=== PATIENT | male | born 1990 | race Caucasian/White ===

== ENCOUNTER 2016-11-26 19:17 | Inpatient (IN) | payer MEDICAID, OTHER ==
--- NOTE | 2016-11-26 19:35 | C.PDOC ---
History Of Present Illness Patient presents to the ER requesting detox from heroin, last use was a few hours ago. Denies physical complaints at this time. Time Seen by Provider: 11/26/16 19:35 Chief Complaint (Nursing): Substance Abuse History Per: Patient History/Exam Limitations: no limitations Onset/Duration Of Symptoms: Hrs Current Symptoms Are (Timing): Still Present Suicide/Self Injury Attempted (Context): None Modifying Factor(s): Narcotics Severity: None Pain Scale Rating Of: 0 Associated Symptoms: denies: Depression, Suicidal Thoughts, Suicidal Plan Involuntary Hold By: None Recent travel outside of the [place]: No Past Medical History Reviewed: Historical Data, Nursing Documentation, Vital Signs Vital Signs: Last Vital Signs Temp 98 F 11/26/16 19:24 Pulse 100 H 11/26/16 19:24 Resp 18 11/26/16 19:24 BP 149/89 11/26/16 19:24 Pulse Ox 96 11/26/16 19:52 - Medical History PMH: Anxiety, HIV - [facility] Procedures ABDOMINAL WALL INCISION (08/31/14) DETOXIFICATION SERVICES FOR SUBSTANCE ABUSE TREATMENT (06/08/15) DRAINAGE OF SPINAL CANAL, PERCUTANEOUS APPROACH, DIAGNOSTIC (05/17/15) EXCIS DEBRIDE OF WOUND, INFECT, OR BURN (08/24/14) INJECT/INFUSE NEC (04/01/13) Family History: States: Unknown Family Hx - Social History Hx Tobacco Use: Yes Hx Alcohol Use: No Hx Substance Use: Yes (Heroin, CRACK) - Immunization History Hx Tetanus Toxoid Vaccination: No Hx Influenza Vaccination: No Hx Pneumococcal Vaccination: No Review Of Systems Constitutional: Negative for: Fever, Chills Gastrointestinal: Negative for: Nausea, Vomiting, Diarrhea Physical Exam - Physical Exam Appears: Non-toxic, No Acute Distress Skin: Warm, Dry Head: Normacephalic Oral Mucosa: Moist Chest: Symmetrical, No Tenderness Cardiovascular: Rhythm Regular Respiratory: No Rales, No Rhonchi, No Wheezing Gastrointestinal/Abdominal: Soft, No Tenderness Neurological/Psych: Oriented x3 ED Course And Treatment - Laboratory Results Result Diagrams: 11/26/16 20:06 11/26/16 20:06 O2 Sat by Pulse Oximetry: 96 (room air) Pulse Ox Interpretation: Normal Progress Note: Blood work and urinalysis ordered. Disposition Discussed With : Ana Garza Comment: accepted the pt on his service and took over the care at 9:42 PM Doctor Will See Patient In The: Hospital Counseled Patient/Family Regarding: Studies Performed, Diagnosis - Disposition Disposition: HOSPITALIZED Disposition Time: 19:35 Condition: FAIR Forms: [facility] (Swedish) - Clinical Impression Clinical Impression: Opioid use disorder, severe, dependence - Scribe Statement The provider has reviewed the documentation as recorded by the Scribchaim Mitchell All medical record entries made by the Scribe were at my direction and personally dictated by me. I have reviewed the chart and agree that the record accurately reflects my personal performance of the history, physical exam, medical decision making, and the department course for this patient. I have also personally directed, reviewed, and agree with the discharge instructions and disposition. Decision To Admit - Pt Status Changed To: Hospital Disposition Of: Inpatient - Admit Certification Admit to Inpatient:: After my assessment, the patient will require hospitalization for at least two midnights. This is because of the severity of symptoms shown, intensity of services needed, and/or the medical risk in this patient being treated as an outpatient. - InPatient: Physician Admission Certification: I certify that this patient requires 2 or more midnights of care for the following reason:: After my assessment, the patient will require hospitalization for at least two midnights. This is because of the severity of symptoms shown, intensity of services needed, and/or the medical risk in this patient being treated as an outpatient. - . Bed Request Type: Detox Admitting Physician: Ana Garza Patient Diagnosis: Opioid use disorder, severe, dependence
[2016-11-26 20:09] LABS: BASO % 0.6 % (0.0-2.0); EOS % 0.5 % (0.0-4.0); HEMATOCRIT 35.5 % (35.0-51.0); LYMPH # 1.3 K/uL (1.0-4.3); MEAN CELL VOLUME 78.8 fL (80.0-94.0); MEAN CORPUSCULAR HEMOGLOBIN 27.1 pg (27.0-31.0); MEAN CORPUSCULAR HGB CONC 34.4 g/dL (33.0-37.0); MEAN PLATELET VOLUME 8.6 fL (7.2-11.7); MONO # 0.3 K/uL (0.0-0.8); MONO % 6.5 % (0.0-10.0); NRBC % 0.1 % (0.0-2.0); RED CELL DISTRIBUTION WIDTH 16.8 % (11.5-14.5); WHITE BLOOD COUNT 4.1 K/uL (4.8-10.8)
[2016-11-26 20:17] LABS: RBC URINE 2 /hpf (0-3); URINE BILIRUBIN NEGATIVE (NEGATIVE); URINE BLOOD NEGATIVE (NEGATIVE); URINE COLOR Yellow (YELLOW); URINE GLUCOSE (UA) NORMAL (Normal); URINE KETONE NEGATIVE (NEGATIVE); URINE LEUKOCYTE ESTERASE NEG Leu/uL (Negative); URINE PROTEIN 1+ mg/dL (NEGATIVE)
[2016-11-26 20:31] LABS: CHLORIDE 103 mmol/L (98-107)
[2016-11-26 20:32] LABS: POTASSIUM 3.9 mmol/L (3.6-5.2); SODIUM 136 mmol/L (132-148)
[2016-11-26 20:34] LABS: ALB/GLOB RATIO 0.8 (1.0-2.1); ALKALINE PHOSPHATASE 261 U/L (38-126); ALT/SGPT 154 U/L (21-72); AST/SGOT 192 U/L (17-59); BILIRUBIN,TOTAL 0.7 mg/dL (0.2-1.3); BLOOD UREA NITROGEN 15 mg/dL (9-20); CARBON DIOXIDE 25 mmol/L (22-30); GFR AFRICAN-AMERICAN > 60; GLUCOSE,RANDOM 116 mg/dL (75-110); TOTAL PROTEIN 9.5 g/dL (6.3-8.3)
[2016-11-26 20:35] LABS: ALCOHOL SERUM < 10 mg/dl (0-10)
[2016-11-26] MEDS ORDERED: Aluminum Hydroxide/Magnesium Hydroxide Susp (30 mL) PO PRN (23:12)
--- NOTE | 2016-11-27 00:41 | PCM.BM ---
<She Graham - Last Filed: 11/27/16 00:40> Treatment Plan Problems - Problems identified on initial assessmt Opiates Abuse Date Initiated: 11/26/16 Time Initiated: 22:45 Assessment reference: NA Status: Active Treatment assets and liabiliti Patient Assests: motivated, self-reliant, ADL independent Patient Liabilities: poor support system, substance abuse, medical problems - Milieu Protocol Maintain good personal hygiene: daily Encourage regular showers, daily Remind patient to perform daily oral care Conduct patient checks and document Observation sheet: Q15 minutes Maintain personal safety: every shift Educate patient to report safety concerns to staff, every shift Monitor environment for contraband/sharps Medication safety: Monitor for expected outcome, potential side effects: every shift, Assess barriers to learning: every shift, Assess readiness for medication education: every shift <Meghan Soria - Last Filed: 11/27/16 11:46> Family Contact Family involvement: Famliy/SO not involved Family contact: Patient declines to allow family contact at present - Goals for Treatment Patient goals for treatment: Complete detox and transition to outpatient treatment with Suboxone. Discharge/Continuing Care - Education Needs Education Needs: Patient Medication, Patient Diagnosis/Disease Process, Patient Coping Skills, Patient Anger Management skills, Patient Placement options, Patient Community resources, Patient Health Practices/Safety (HIV) - Discharge Discharge Criteria: Ability to care for self, No longer exhibiting s/s of withdrawal, Reduction of target symptoms Discharge to:: Home - Treatment Team Participation Patient/Family/SO Statement: 11/27/16 11:48 "I wanna do Suboxone...I don't wanna do inpatient." Discussed with Family/SO: No Was Patient/Family/SO present at Treatment Team Meeting: Yes <Ana Garza - Last Filed: 11/30/16 10:55> - Diagnosis (1) Opioid use disorder, severe, dependence Status: Acute Interventions: 11/30/16 10:55 * Assess 7x/week regarding severity of withdrawal * Educate regarding risks, benefits, side effects and alternatives of medications * Use Motivational Interviewing for abstinence * Use CBT for relapse prevention * Medication management for withdrawal symptoms * Encourage medication assisted treatment *
--- NOTE | 2016-11-27 14:23 | PCM.PSYCH ---
Initial Psychiatric Evaluation - Initial Psychiatric Evaluation Type of Admission: Voluntary Legal Status: Capacity Chief Complaint (in patient's own words): "Heroin" History of Present Illness and Precipitating Events: A 26 year old male with a pmh of HIV is coming into the hospital for heroin withdrawal and detoxification. Pt admits to 5-10 bags daily via injection fo the past 8 years. Pt relapesed 1 year ago and overdosed once 1/2 a year ago. Longest period of sobriety with heroin was 4 months. Pt denies drinking alcohol but smokes 1/2 a packof cigarettes daily. Pt is currently feeling very anxious but denies SI/HI. Pt is single and currently lives back and forth at a friends house and on the streets. He is currently working for a moving company. He denies any legal issues currently or in the past. Pt has been to a detox program once in the past. He also abuses MJ and amphetamines frequently PMH: HIV, diagnosed at 21 years old via sharing needles. Medications: stopped taking HIV medications 2 years ago Family Hx: denies any medical or psychiatric issues. Allergies: denies Current Medications: Active Medications Generic Name Dose Route Start Last Admin Trade Name Freq PRN Reason Stop Dose Admin Al Hydrox/Mg Hydrox/Simethicone 30 ml 11/26/16 23:12 Maalox 30 Ml PO TID PRN Indigestion / Heartburn Clonidine HCl 0.1 mg 11/26/16 23:12 Catapres PO Q8 PRN COWS Score More or Equal to 5 Gabapentin 300 mg 11/27/16 10:00 11/27/16 11:15 Neurontin PO 300 mg BID DAX Administration Hydroxyzine HCl 50 mg 11/26/16 23:01 11/27/16 01:34 Atarax PO 50 mg Q6H PRN Administration Anxiety Ibuprofen 600 mg 11/26/16 23:01 Motrin Tab PO Q6H PRN Pain, moderate (4-7) Loperamide HCl 2 mg 11/26/16 23:12 Imodium PO Q8 PRN Diarrhea Ondansetron HCl 4 mg 11/26/16 23:12 Zofran Tab PO Q8 PRN Nausea/Vomiting Trazodone HCl 100 mg 11/26/16 23:01 11/27/16 01:34 Desyrel PO 100 mg HS PRN Administration Insomnia Past Psychiatric History - Past Psychiatric History Pertinent Medical Hx (Current Medical&Sleep Prob, Allergies): Allergies Allergy/AdvReac Type Severity Reaction Status Date / Time No Known Allergies Allergy Verified 02/17/16 03:01 No Known Home Med 12/15/15 Review of Systems - Neurological Neurological: UNREMARKABLE - Psychiatric Psychiatric: As Per HPI, Anxiety. absent: Auditory Hallucinations, Behavioral Changes, Change in Appetite, Depression, Difficulty Concentrating, Hallucinations, Homicidal Ideation, Suicidal Ideation Mental Status Examination - Personal Presentation Personal Presentation: Looks older than stated age - Affect Affect: Constricted - Motor Activity Motor Activity: Psychomotor Agitation - Reliability in Providing Information Reliability in Providing Information: Fair - Speech Speech: Organized - Mood Mood: Anxious - Formal Thought Process Formal Thought Process: No Impairment - Obsessions/Compulsions Obsessions: No Compulsions: No - Cognitive Functions Orientation: Person, Place, Situation, Time Sensorium: Alert Attention/Concentration: Attentive Abstract Thinking: [place] Judgement: Intact, as evidence by: Insight regarding need for hospitalization Memory: Recent intact, as evidence by: Ability to recall events of the day - Risk Risk: Withdrawal DSM 5 DX - DSM 5 DSM 5 Diagnosis: Opioid Use DIsorder Opioid withdrawal 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
[2016-11-28] MEDS ORDERED: Buprenorphine Hydrochloride 2 mg SL ONE ×2 (06:50→08:00)
--- NOTE | 2016-11-28 13:48 | PCM.PYCHPN ---
Psychiatric Progress Note - Psychiatric Progress Note Patient seen today, length of contact: 15 min Patient Chief Complaint: "Feel alright" Problems Identified/Issues Discussed: The pt is seen, chart reviewed, case discussed with staff. Support given, CBT and ME used briefly Did not sleep well Still feels anxious and hesitant upon meeting him today Describes mood as "so and so" No SEs from medications, risks discussed. Recommended Pt to follow up with SW to discuss looking into different out patient programs in the area for detox Counseled patient on considering to meet with Infectious Disease for HIV management Medication Change: Yes (detox daily) Medical Record Reviewed: Yes Mental Status Examination - Cognitive Function Orientation: Person, Place, Situation, Time Memory: Intact Attention: WNL Concentration: WNL Association: WNL Fund of Knowledge: WNL - Mood Mood: Anxious - Affect Affect: Constricted - Speech Speech: Slurred - Formal Thought Process Formal Thought Process: No Impairment - Suicidal Ideation Suicidal Ideation: No - Homicidal Ideation Homicidal Ideation: No Goal/Treatment Plan - Goal/Treatment Plan Need for Continued Stay: Discharge may exacerbated symptoms Progress Toward Problem(s) and Goals/Treatment Plan: Methadone detox As needed medications Gabapentin for augmentation Attend groups and activities Supportive therapy and psychoeducation ME for abstinence CBT for relapse prevention Encourage MAT Encourage f/U with INfectious Disease for HIV status Encourage to speak with Roll Slicing Machine Tender about outpatient programs in the area Attend self-help groups as well Fair prognosis Estimated Date of D/C: 12/02/16 - Smoking Cessation Smoking Cessation Initiated: No
[2016-11-29] MEDS: Buprenorphine Hydrochloride 2 mg SL SCH (09:44)
--- NOTE | 2016-11-29 14:28 | PCM.PYCHPN ---
Psychiatric Progress Note - Psychiatric Progress Note Patient seen today, length of contact: 15 min Patient Chief Complaint: "Doing Good" Problems Identified/Issues Discussed: The pt is seen, chart reviewed, case discussed with staff. Support given, CBT and ND used briefly Did not sleep well overnight. Feeling withdrawal symptoms such as chills and anxiety No SEs from medications, risks discussed. Discussed going to out patient program after discharge Late entry: He attempted to sign out AMA in the evening bc he was having "too much anxiety" prn meds and one dose IM ativan (he asked for IM instead of po) given with good result. Sleep meds increased already Medication Change: Yes (detox daily) Medical Record Reviewed: Yes Mental Status Examination - Cognitive Function Orientation: Person, Place, Situation, Time Memory: Intact Attention: WNL Concentration: WNL Association: WNL Fund of Knowledge: WNL - Mood Mood: Anxious - Affect Affect: Constricted - Speech Speech: Slurred - Formal Thought Process Formal Thought Process: No Impairment - Suicidal Ideation Suicidal Ideation: No - Homicidal Ideation Homicidal Ideation: No Goal/Treatment Plan - Goal/Treatment Plan Need for Continued Stay: Discharge may exacerbated symptoms, Severe functional impairment Progress Toward Problem(s) and Goals/Treatment Plan: Methadone detox As needed medications Gabapentin for augmentation Attend groups and activities Supportive therapy and psychoeducation ND for abstinence CBT for relapse prevention Encourage MAT Encourage f/U with Infectious Disease for HIV status Encourage to speak with Sales Service Supervisor about outpatient programs in the area Attend self-help groups as well Estimated Date of D/C: 12/02/16 - Smoking Cessation Smoking Cessation Initiated: No
[2016-11-30 03:20] VITALS: RESP 18
[2016-11-30] MEDS: Buprenorphine Hydrochloride 2 mg SL SCH (09:12)
[2016-11-30 13:22] VITALS: BP 109/66; PULSE 75; TEMP 98.7; O2SAT 100
--- NOTE | 2016-11-30 15:28 | PCM.PYCHDC ---
Mental Status Examination - Mental Status Examination Orientation: Person, Place, Situation, Time Memory: Intact Mood: Neutral Affect: Other Speech: Appropriate Attention: WNL Concentration: WNL Association: WNL Fund of Knowledge: WNL Formal Thought Process: No Impairment Description of patient's judgement and insight: Poor Psychotic Thoughts and Behaviors: None Suicidal Ideation: No Current Homicidal Ideation?: No Discharge Summary - Discharge Note Reason for Hospitalization: Opiate use Laboratory Data: Reviewed Consultations:: List each consultation separately and include: 1. Reason for request. 2. Findings. 3. Follow-up Summary of Hospital Course include:: 1. Description of specific treatment plan utilized for patients during their course of treatmen. 2. Summarize the time- course for resolution of acute symptoms and/or regressed behaviors. 3. Describe issues identified and worked on during hospitalization. 4. Describe medication utilized. 5. Describe medical problems identified and treated. 6. Reassessment of suicide risk Summary of Hospital Course: A 26 year old male with a pmh of HIV is coming into the hospital for heroin withdrawal and detoxification. Pt admits to 5-10 bags daily via injection fo the past 8 years. Pt relapesed 1 year ago and overdosed once 1/2 a year ago. Longest period of sobriety with heroin was 4 months. Pt denies drinking alcohol but smokes 1/2 a packof cigarettes daily. Pt is currently feeling very anxious but denies SI/HI. Pt is single and currently lives back and forth at a friends house and on the streets. He is currently working for a moving company. He denies any legal issues currently or in the past. Pt has been to a detox program once in the past. He also abuses MJ and amphetamines frequently PMH: HIV, diagnosed at 21 years old via sharing needles. Medications: stopped taking HIV medications 2 years ago Family Hx: denies any medical or psychiatric issues. Allergies: denies During his stay on the unit patient was treated with Subutex, Ativan and other when necessary medications. Patient started feeling better with the treatment. Today patient decided to leave the unit. Education provided to the patient about completion of detox as today patient got Subutex 6 mg. Patient refused. Patient was also educated about any adverse events including relapse, overdose or even of the patient, patient will be responsible for his actions. Patient understood but still refused to stay and left the unit AGAINST MEDICAL ADVICE. At the time of evaluation and discharge, patient was awake alert oriented 3, had no delusions, no auditory or visual hallucinations, no suicidal ideations or homicidal ideations. Patient was discharged in a stable condition. - Final Diagnosis (DSM 5) Condition upon Discharge: STABLE Disposition: AGAINST MEDICAL ADVICE - Smoking Cessation Smoking Cessation Medication prescribed: No - Antipsychotic Medications Pt discharged on 2 or more routine antipsychotic medications: No
== END 2016-11-30 14:15 | disposition left against medical advice (07) | DRG 894 ==
LOC: C.ER 19:17 → C.9E 21:40 → C.7D 22:32
PROVIDERS: ADMIT Psychiatry & Neurology Psychiatry; ATTEND Psychiatry & Neurology Psychiatry
PROC: HZ2ZZZZ Detoxification Services for Substance Abuse Treatment (ICD-10-PCS; principal; 2016-11-26)
PROC: HZ42ZZZ Group Counseling for Substance Abuse Treatment, Cognitive-Behavioral (ICD-10-PCS; 2016-11-26)
PROC: HZ46ZZZ Group Counseling for Substance Abuse Treatment, Psychoeducation (ICD-10-PCS; 2016-11-26)
DX: F11.23 Opioid dependence with withdrawal (principal); B20 Human immunodeficiency virus [HIV] disease; F12.90 Cannabis use, unspecified, uncomplicated; F15.90 Other stimulant use, unspecified, uncomplicated; F17.210 Nicotine dependence, cigarettes, uncomplicated; F41.9 Anxiety disorder, unspecified

== ENCOUNTER 2017-03-08 17:23 | Emergency (ER) | payer MEDICAID, OTHER ==
--- NOTE | 2017-03-08 17:55 | C.PDOC ---
History Of Present Illness 26M brought by EMS after he was found on the street unconscious. Pt was given narcan 2mg intranasal [employer] M[employer]ER. He states he injected heroin. Denies other drug uses , alcohol, or any other physical complaints. He denies suicidal ideation. He says he recently was released from long term and this was his first time injecting drugs since being released. Time Seen by Provider: 03/08/17 17:31 Chief Complaint (Nursing): Substance Abuse History Per: Patient History/Exam Limitations: no limitations Onset/Duration Of Symptoms: Hrs Current Symptoms Are (Timing): Still Present Suicide/Self Injury Attempted (Context): None Modifying Factor(s): Other (heroine) Associated Symptoms: denies: Anger, Depression, Suicidal Thoughts, Suicidal Plan Involuntary Hold By: None Recent travel outside of the [place]: No Past Medical History Reviewed: Historical Data, Nursing Documentation, Vital Signs Vital Signs: Last Vital Signs Temp 97.7 F 03/08/17 19:07 Pulse 98 H 03/08/17 19:07 Resp 18 03/08/17 19:07 BP 138/89 03/08/17 19:07 Pulse Ox 98 03/08/17 19:07 - Medical History PMH: Anxiety, HIV - [facility] Procedures ABDOMINAL WALL INCISION (08/31/14) DETOXIFICATION SERVICES FOR SUBSTANCE ABUSE TREATMENT (11/26/16) DRAINAGE OF SPINAL CANAL, PERCUTANEOUS APPROACH, DIAGNOSTIC (05/17/15) EXCIS DEBRIDE OF WOUND, INFECT, OR BURN (08/24/14) GROUP GROUND CREWMAN FOR SUBSTANCE ABUSE TREATMENT, PSYCHOEDUCATION (11/26/16) GROUP GROUND CREWMAN FOR SUBSTANCE ABUSE, COGNITIVE BEHAVIORAL (11/26/16) INJECT/INFUSE NEC (04/01/13) Family History: States: Unknown Family Hx - Social History Hx Tobacco Use: Yes Hx Alcohol Use: No Hx Substance Use: Yes (Heroin, Crystal meth, cannabinoids) - Immunization History Hx Tetanus Toxoid Vaccination: No Hx Influenza Vaccination: No Hx Pneumococcal Vaccination: No Review Of Systems Constitutional: Positive for: Other (IV Drug use). Negative for: Fever, Chills Cardiovascular: Negative for: Chest Pain, Palpitations Respiratory: Negative for: Cough, Shortness of Breath Neurological: Negative for: Weakness, Numbness Psych: Negative for: Suicidal ideation Physical Exam - Physical Exam Appears: Non-toxic, No Acute Distress Skin: Warm, Dry, Other (Small 2cm hematoma and superficial abrasionover left forehead) Head: Atraumatic, Normacephalic Eye(s): bilateral: Normal Inspection Oral Mucosa: Moist Neck: Normal ROM, No Midline Cervical Tenderness, Supple Chest: Symmetrical, No Tenderness Cardiovascular: Rhythm Regular Respiratory: No Decreased Breath Sounds, No Accessory Muscle Use, No Rales, No Rhonchi, No Wheezing Gastrointestinal/Abdominal: Soft, No Tenderness Extremity: Normal ROM, No Tenderness, No Swelling Neurological/Psych: Oriented x3, Normal Speech, Normal Cognition, Other (no focal deficits) ED Course And Treatment O2 Sat by Pulse Oximetry: 100 (RA) Pulse Ox Interpretation: Normal Medical Decision Making Medical Decision Making: Pr remained a&ox3 and clinically sober prior to dc. Disposition - Disposition Referrals: [facility] [Outside] Disposition: HOME/ ROUTINE Disposition Time: 19:02 Condition: STABLE Additional Instructions: Please follow up with a primary doctor. Return to the ER for any other concerns. Forms: General Discharge Instructions, [facility] (Korean) - Clinical Impression Clinical Impression: Accidental overdose of heroin - Scribe Statement The provider has reviewed the documentation as recorded by the Scribchaim Marquez All medical record entries made by the Arturoibchaim were at my direction and personally dictated by me. I have reviewed the chart and agree that the record accurately reflects my personal performance of the history, physical exam, medical decision making, and the department course for this patient. I have also personally directed, reviewed, and agree with the discharge instructions and disposition.
--- NOTE | 2017-03-08 18:57 | CT ---
EXAM: CT Head Without Intravenous Contrast CLINICAL HISTORY: 26 years old, male; Injury or trauma; Fall; Initial encounter; Blunt trauma (contusions or hematomas); Consciousness not specified; Additional info: Fall head injury TECHNIQUE: Axial computed tomography images of the head/brain without intravenous contrast. All CT scans at this facility use one or more dose reduction techniques, viz.: automated exposure control; ma/kV adjustment per patient size (including targeted exams where dose is matched to indication; i.e. head); or iterative reconstruction technique. Coronal and sagittal reformatted images were created and reviewed. COMPARISON: No relevant prior studies available. FINDINGS: Brain: No intracranial hemorrhage. No mass. No edema. Ventricles: No hydrocephalus. Bones/joints: No acute fracture. Soft tissues: Minimal scalp swelling. Sinuses: Scattered mild mucosal thickening. Mastoid air cells: No mastoid effusion. Orbits: Unremarkable as visualized. Nasopharynx: Enlarged adenoids. IMPRESSION: 1. No intracranial hemorrhage. 2. Incidental/non-acute findings are described above.
[2017-03-08 19:08] VITALS: BP 138/89; PULSE 98; RESP 18; TEMP 97.7
[2017-03-12 18:39] VITALS: O2SAT 100
== END 2017-03-08 19:08 | disposition home or self-care (01) ==
LOC: C.ER 17:23
DX: T40.1X1A Poisoning by heroin, accidental (unintentional), initial encounter (principal); Y92.9 Unspecified place or not applicable

== ENCOUNTER 2018-05-21 16:38 | Inpatient (IN) | payer MEDICAID, OTHER ==
[2018-05-21 16:38] VITALS: BMI 25.8
[2018-05-21 17:35] LABS: BASO % 0.3 % (0.0-2.0); EOS % 0.3 % (0.0-4.0); HEMOGLOBIN 11.6 g/dL (12.0-18.0); LYMPH % 22.5 % (20.0-40.0); MEAN CORPUSCULAR HEMOGLOBIN 25.1 pg (27.0-31.0); MEAN CORPUSCULAR HGB CONC 32.7 g/dL (33.0-37.0); MEAN PLATELET VOLUME 7.5 fL (7.2-11.7); MONO # 0.2 K/uL (0.0-0.8); MONO % 4.8 % (0.0-10.0); NEUT # 3.3 K/uL (1.8-7.0); NEUT % 72.1 % (50.0-75.0); NRBC % 0.1 % (0.0-2.0); RBC 4.64 Mil/uL (4.40-5.90); WHITE BLOOD COUNT 4.6 K/uL (4.8-10.8)
[2018-05-21 17:39] LABS: MEAN CELL VOLUME 76.6 fL (80.0-94.0); SQUAMOUS EPITHIAL < 1 /hpf (0-5); URINE BACTERIA RARE (<OCC); URINE BILIRUBIN NEGATIVE (NEGATIVE); URINE BLOOD NEGATIVE (NEGATIVE); URINE CALCIUM OXALATE CRYSTALS FEW /hpf (<OCC); URINE CLARITY Hazy (Clear); URINE COLOR Yellow (YELLOW); URINE GLUCOSE (UA) NORMAL (Normal); URINE LEUKOCYTE ESTERASE NEG Leu/uL (Negative); URINE PROTEIN 1+ mg/dL (NEGATIVE)
[2018-05-21 17:59] LABS: ALB/GLOB RATIO 0.8 (1.0-2.1); ALBUMIN 3.9 g/dL (3.5-5.0); ALT/SGPT 17 U/L (21-72); AST/SGOT 31 U/L (17-59); BLOOD UREA NITROGEN 17 mg/dL (9-20); CALCIUM 9.1 mg/dl (8.6-10.4); GFR NON-AFRICAN AMERICAN > 60
[2018-05-21 18:01] LABS: PHENCYCLIDINE, UR NEGATIVE (NEGATIVE)
--- NOTE | 2018-05-21 18:08 | RAD ---
Date of service: 05/21/2018 PROCEDURE: Radiographs of the Lumbar Spine. HISTORY: back pain COMPARISON: None available. FINDINGS: BONES: Alignment appears satisfactory. No listhesis. No acute displaced fracture identified. DISC SPACES: Unremarkable. OTHER FINDINGS: Moderate to severe constipation. IMPRESSION: No acute displaced fracture or dislocation. Moderate to severe constipation.
[2018-05-21 18:15] LABS: BARBITURATES, UR NEGATIVE (NEGATIVE); BENZODIAZEPINES, UR NEGATIVE (NEGATIVE)
--- NOTE | 2018-05-21 18:52 | C.PDOC ---
History Of Present Illness Patient is a 27 year old male who presents to the ED requesting detox from heroin. Patient walks with a cane and reports that starting 3 to 4 days ago he began experiencing pain in his low back radiating to left buttock and down to l eft leg, similar to sciatica. Patient has not seen a doctor for these symptoms. He denies any SI/HI, hallucinations, CP, or SOB. Time Seen by Provider: 05/21/18 16:51 Chief Complaint (Nursing): Substance Abuse History Per: Patient History/Exam Limitations: no limitations Onset/Duration Of Symptoms: Days (4) Current Symptoms Are (Timing): Still Present Associated Symptoms: denies: Suicidal Thoughts, Suicidal Plan Involuntary Hold By: None Recent travel outside of the [place]: No Additional History Per: Patient Past Medical History Reviewed: Historical Data, Nursing Documentation, Vital Signs Vital Signs: Last Vital Signs Temp 98.1 F 05/21/18 16:44 Pulse 113 H 05/21/18 16:44 Resp 17 05/21/18 16:44 BP 130/84 05/21/18 16:44 Pulse Ox 99 05/21/18 16:44 - Medical History PMH: Anxiety, Back Problems (SCIATICA), HIV Denies: Diabetes, Hepatitis, HTN, Chronic Kidney Disease, Seizures, Sexually Transmitted Disease Surgical History: No Surg Hx - [facility] Procedures ABDOMINAL WALL INCISION (08/31/14) DETOXIFICATION SERVICES FOR SUBSTANCE ABUSE TREATMENT (11/26/16) DRAINAGE OF SPINAL CANAL, PERCUTANEOUS APPROACH, DIAGNOSTIC (05/17/15) EXCIS DEBRIDE OF WOUND, INFECT, OR BURN (08/24/14) GROUP GENERAL WAREHOUSE WORKER FOR SUBSTANCE ABUSE TREATMENT, PSYCHOEDUCATION (11/26/16) GROUP GENERAL WAREHOUSE WORKER FOR SUBSTANCE ABUSE, COGNITIVE BEHAVIORAL (11/26/16) INJECT/INFUSE NEC (04/01/13) Family History: States: Unknown Family Hx - Social History Hx Tobacco Use: Yes Hx Alcohol Use: No Hx Substance Use: Yes (LAST USE YESTERDAY) - Immunization History Hx Tetanus Toxoid Vaccination: No Hx Influenza Vaccination: No Hx Pneumococcal Vaccination: No Review Of Systems Except As Marked, All Systems Reviewed And Found Negative. Cardiovascular: Negative for: Chest Pain Respiratory: Negative for: Shortness of Breath Musculoskeletal: Positive for: Back Pain (low back pain radiating to left buttock and down to left leg ) Psych: Negative for: Suicidal ideation, Other (HI or hallucinations) Physical Exam - Physical Exam Appears: Non-toxic, No Acute Distress Skin: Normal Color, Warm, Dry Head: Atraumatic, Normacephalic Eye(s): bilateral: Normal Inspection Oral Mucosa: Moist Neck: Normal ROM, Supple Chest: Symmetrical, No Deformity Cardiovascular: Rhythm Regular, No Murmur Respiratory: Normal Breath Sounds, No Rales, No Rhonchi, No Wheezing Back: Other (left buttock normal, no erythema or swelling ) Extremity: Capillary Refill (less than 2 seconds), Other (left leg positive straight leg test 60 degrees) Neurological/Psych: Oriented x3, Normal Speech, Normal Cognition ED Course And Treatment - Laboratory Results Result Diagrams: 05/21/18 17:30 05/21/18 17:30 Lab Results: Total Bilirubin 0.2 mg/dL (0.2-1.3) 05/21/18 17:30 AST 31 U/L (17-59) 05/21/18 17:30 ALT 17 U/L (21-72) L D 05/21/18 17:30 Alkaline Phosphatase 107 U/L (38-126) 05/21/18 17:30 Total Protein 8.7 g/dL (6.3-8.3) H 05/21/18 17:30 Albumin 3.9 g/dL (3.5-5.0) 05/21/18 17:30 Globulin 4.8 gm/dL (2.2-3.9) H 05/21/18 17:30 Albumin/Globulin Ratio 0.8 (1.0-2.1) L 05/21/18 17:30 Urine Color Yellow (YELLOW) 05/21/18 17:30 Urine Clarity Hazy (Clear) 05/21/18 17:30 Urine pH 5.0 (5.0-8.0) 05/21/18 17:30 Ur Specific Gary 1.030 (1.003-1.030) 05/21/18 17:30 Urine Protein 1+ mg/dL (NEGATIVE) H 05/21/18 17:30 Urine Glucose (UA) Normal mg/dL (Normal) 05/21/18 17:30 Urine Ketones Negative mg/dL (NEGATIVE) 05/21/18 17:30 Urine Blood Negative (NEGATIVE) 05/21/18 17:30 Urine Nitrate Negative (NEGATIVE) 05/21/18 17:30 Urine Bilirubin Negative (NEGATIVE) 05/21/18 17:30 Urine Urobilinogen 2.0 mg/dL (0.2-1.0) 05/21/18 17:30 Ur Leukocyte Esterase Neg Janie/uL (Negative) 05/21/18 17:30 Urine WBC (Auto) 5 /hpf (0-5) 05/21/18 17:30 Urine RBC (Auto) 2 /hpf (0-3) 05/21/18 17:30 Ur Squamous Epith Cells < 1 /hpf (0-5) 05/21/18 17:30 Calcium Oxalate Crystal Few /hpf (<OCC) H 05/21/18 17:30 Urine Bacteria Rare (<OCC) 05/21/18 17:30 O2 Sat by Pulse Oximetry: 99 (on RA) Pulse Ox Interpretation: Normal - Other Rad Xray LS Spine X-Ray: Viewed By Me, Read By Radiologist Interpretation: Date of service: 05/21/2018. PROCEDURE: Radiographs of the Lumbar Spine. HISTORY: back pain. COMPARISON: None available. FINDINGS: BONES: Alignment appears satisfactory. No listhesis. No acute displaced fracture identified. DISC SPACES: Unremarkable. OTHER FINDINGS: Moderate to severe constipation. IMPRESSION: No acute displaced fracture or dislocation. Moderate to severe constipation. Progress Note: Plan: Labs. Urinalysis. Xray LS Spine. Patient is medically cleared for detox. Disposition - Disposition Disposition: HOSPITALIZED Disposition Time: 19:07 Condition: STABLE Forms: [facility] (Portuguese) - Clinical Impression Clinical Impression: Opioid use disorder, severe, dependence - PA / OPERATIONS RESEARCH ENGINEER / Resident Statement MD/DO has examined the patient and agrees with the treatment plan. - Scribe Statement The provider has reviewed the documentation as recorded by the Dell Pierre All medical record entries made by the Dell were at my direction and personally dictated by me. I have reviewed the chart and agree that the record accurately reflects my personal performance of the history, physical exam, medical decision making, and the department course for this patient. I have also personally directed, reviewed, and agree with the discharge instructions and disposition. Physician Patient Turnover Patient Signed Over To: Jayy Saldivar Handoff Comments: pending acceptance by Psychiatrist
[2018-05-21 18:57] LABS: OPIATES, UR POSITIVE (NEGATIVE)
--- NOTE | 2018-05-21 20:47 | PCM.BM ---
Treatment Plan Problems - Problems identified on initial assessmt Defensive Coping Date Initiated: 05/21/18 Time Initiated: 20:46 Assessment reference: NA Status: Active Denial Date Initiated: 05/21/18 Time Initiated: 20:46 Assessment reference: NA Status: Active Hopelessness Date Initiated: 05/21/18 Time Initiated: 20:46 Assessment reference: NA Status: Active Treatment assets and liabiliti Patient Assests: motivated, self-reliant, ADL independent, negotiates basic needs Patient Liabilities: substance abuse - Milieu Protocol Maintain good personal hygiene: daily Encourage regular showers, daily Remind patient to perform daily oral care, daily Assist patient to perform ADL's Maintain personal safety: every shift Educate patient to report safety concerns to staff, every shift Monitor environment for contraband/sharps Medication safety: Monitor for expected outcome, potential side effects: every shift, Assess barriers to learning: every shift, Assess readiness for medication education: every shift
--- NOTE | 2018-05-22 13:06 | PCM.PSYCH ---
Initial Psychiatric Evaluation - Initial Psychiatric Evaluation Type of Admission: Voluntary Legal Status: Capacity Chief Complaint (in patient's own words): "I relapsed" History of Present Illness and Precipitating Events: Pt is seen, chart reviewed and case discussed. 27 y/o single unemployed male with no children. Pt is homeless. States that he does 5-10 bags of heroin (IV) per day for the past 11 years. The longest time he was sober was 4 months in 2017. At the time he was in a methadone program. He admits that when he left the program he went back to using because he did not have a lot of support. Pt has been to detox 2 times in the past, but has never been to rehab. He currently has chills, cramps, restlessness, yawning, irritability and states that his left leg has been bothering him. COWS is 10 and increasing. Pt has been HIV positive for three years, but has been non compliant will all of his medications for the past 3 years. After detox he plans to do an outpatient rehab. Pt mentioned that "this time will be different because I came her on my own and I am more motivated now". Denies suicidal or homicidal ideations but is depressed and anxious. Psych HX: Depression Fam Psych Hx: Denies Medical Hx: HIV(non compliant with medications. CD4 will be checked. He also uses a cane bc of an unidentified pain in his left flank. Medication: Not currently on any medications Social: Homeless, no children, unemployed Trauma: Denies ? Current Medications: Active Medications Generic Name Dose Route Start Last Admin Trade Name Freq PRN Reason Stop Dose Admin Gabapentin 400 mg 05/22/18 14:00 Neurontin PO TID DAX Hydroxyzine HCl 25 mg 05/21/18 21:43 Atarax PO Q6 PRN Anxiety Ibuprofen 600 mg 05/22/18 10:18 Motrin Tab PO Q6H PRN Pain, moderate (4-7) Methadone HCl 20 mg 05/22/18 10:00 05/22/18 10:27 Methadone PO 05/26/18 09:59 20 mg Q24H DAX Administration Taper Nicotine 1 patch 05/22/18 10:00 05/22/18 09:22 Nicoderm Cq TD 1 patch DAILY DAX Administration Trazodone HCl 100 mg 05/22/18 10:19 Desyrel PO HS PRN Insomnia Past Psychiatric History - Past Psychiatric History Pertinent Medical Hx (Current Medical&Sleep Prob, Allergies): Allergies Allergy/AdvReac Type Severity Reaction Status Date / Time No Known Allergies Allergy Verified 05/21/18 16:44 Ibuprofen [Motrin] 600 mg PO Q6H PRN #20 tab 06/07/17 Review of Systems - Psychiatric Psychiatric: Abnormal Sleep Pattern, Anhedonia, Anxiety, Behavioral Changes, Change in Appetite, Depression, Difficulty Concentrating, Irritability, Mood Swings. absent: Hallucinations, Homicidal Ideation, Paranoia, Suicidal Ideation Mental Status Examination - Personal Presentation Personal Presentation: Looks older than stated age - Affect Affect: Constricted - Motor Activity Motor Activity: Calm - Reliability in Providing Information Reliability in Providing Information: Good - Speech Speech: Organized - Mood Mood: Depressed, Anxious - Formal Thought Process Formal Thought Process: No Impairment - Cognitive Functions Orientation: Person, Place, Situation, Time Sensorium: Alert Attention/Concentration: Attentive Estimate of Intelligence: Average Judgement: Intact, as evidence by: Insight regarding need for hospitalization Memory: Recent intact, as evidence by: Ability to recall events of the day, Remote intact, as evidenced by: Abilit to recall sig. life events - Risk Risk: Withdrawal, Diminished functioning - Strength & Assets Inventory Strength & Assets Inventory: Cooperative - Limitations Limitations: Other DSM 5 DX - DSM 5 DSM 5 Diagnosis: Opoid withdrawal Opioid use d/o - severe Depressive d/o - unspecified - Recommended/Plan of Treatment Treatment Recommendations and Plan of Treatment: Taper with methadone Gabapentin for augmentation and nerve pain As needed medications All risks, benefits and alternatives of the meds discussed, and the pt agreed and understood. Attend groups and activities Supportive therapy and psychoeducation [place] for abstinence CBT for relapse prevention Encourage MAT Refer to rehab or IOP, and self-help groups Teach healthy lifestyle methods, i.e. diet, exercise, meditation Smoking cessation with [place] Nicotine patch if needed ID consult if needed. 34 min Projected ELOS: 4 days
[2018-05-23] MEDS: Hydrocortisone 2.5% Rectal Cream(30 gm) PR SCH ×2 (01:25→18:21)
--- NOTE | 2018-05-23 11:16 | PCM.PYCHPN ---
Psychiatric Progress Note - Psychiatric Progress Note Patient seen today, length of contact: 15 min Patient Chief Complaint: I am still withdrawing. Problems Identified/Issues Discussed: Patient seen and evaluated, chart reviewed and discussed with the nurse. Patient reports some improvement in the withdrawal symptoms but still reports anxiety, headaches, cramps, joint pains and sweating. He reports anxiety but denies any feelings of hopelessness or helplessness. He denies any denies any manic or psychotic symptom. He denies any suicidal ideation or homicidal ideation. He is taking medications but denies any effects. Symptoms are improving gradually but he needs to stay longer for further stabilization. Supportive therapy and psychoeducation were given Medication Change: Yes Medical Record Reviewed: Yes Mental Status Examination - Cognitive Function Orientation: Person, Place, Situation, Time Memory: Intact Attention: WNL Concentration: Poor Association: WNL Fund of Knowledge: Poor - Mood Mood: Depressed, Anxious - Affect Affect: Constricted - Speech Speech: Soft - Formal Thought Process Formal Thought Process: No Impairment - Suicidal Ideation Suicidal Ideation: No - Homicidal Ideation Homicidal Ideation: No Goal/Treatment Plan - Goal/Treatment Plan Need for Continued Stay: Remain at risks for inpatient hospitalization Progress Toward Problem(s) and Goals/Treatment Plan: Opoid withdrawal Opioid use d/o - severe Depressive d/o - unspecified Taper with methadone Gabapentin for augmentation and nerve pain As needed medications All risks, benefits and alternatives of the meds discussed, and the pt agreed and understood. Attend groups and activities Supportive therapy and psychoeducation [place] for abstinence CBT for relapse prevention Encourage MAT Refer to rehab or IOP, and self-help groups Teach healthy lifestyle methods, i.e. diet, exercise, meditation Smoking cessation with [place] Nicotine patch if needed
--- NOTE | 2018-05-23 14:21 | CP.PCM.CON ---
<Jacqueline Gandara - Last Filed: 05/23/18 14:17> History of Present Illness - History of Present Illness History of Present Illness: Medicine Consult Note for Dr. Holt's service CC: rectal bleeding Patient is a 27 yo male w/ PMH of HIV, Heroin abuse, inguinal abscess admitted to detox unit for heroin abuse. Patient states his rectal bleeding started approximately 3 days ago. Patient states that this has not happened in the past. Patient denies dizziness, lightheadedness, sob, cp at this time. Patient has never had a colonoscopy in the past. Denies fevers, chills, chest pain, sob, n/v, constipation or diarrhea, and dizziness. Patient uses heroin and last use was 4/3 (3 days ago). Uses about 5-10 bags/daily. Patient had a formal diagnosis of HIV 6 years ago, 3 years ago stopped taking meds for HIV. ROS: positive for left leg weakness, diffuse generalized weakness, palpitations PMH: R inguinal abscess, HIV, heroin abuse PSH: I&D of right inguinal abscess All: NKDA meds: None Social: 1/2 pack a day (13 year history); Heroin abuse (11 years); Denies etoh use Family: Mother-SLE; GM: DM, HTN Advance Directive: None Code Status: Full Code PMD: Denies Review of Systems - Review of Systems All systems: reviewed and no additional remarkable complaints except Review of Systems: see HPI Past Patient History - Infectious Disease Hx of Infectious Diseases: None - Past Medical History & Family History Past Medical History?: Yes - Past Social History Smoking Status: Light Smoker < 10 Cigarettes Daily - CARDIAC Hx Hypertension: No - PULMONARY Hx Tuberculosis: No - NEUROLOGICAL Hx Seizures: No - HEENT Hx HEENT Problems: No - RENAL Hx Chronic Kidney Disease: No - ENDOCRINE/METABOLIC Hx Endocrine Disorders: No - HEMATOLOGICAL/ONCOLOGICAL Hx Human Immunodeficiency Virus (HIV): Yes - INTEGUMENTARY Hx Dermatological Problems: Yes - MUSCULOSKELETAL/RHEUMATOLOGICAL Hx Musculoskeletal Disorders: No Hx Falls: No Hx Unsteady Gait: Yes - GASTROINTESTINAL Hx Gastrointestinal Disorders: No - GENITOURINARY/GYNECOLOGICAL Hx Sexually Transmitted Disorders: No - PSYCHIATRIC Hx Substance Use: Yes - SURGICAL HISTORY Hx Surgeries: Yes Other/Comment: abscess removal on both groins - ANESTHESIA Hx Anesthesia: Yes Hx Anesthesia Reactions: No Hx Malignant Hyperthermia: No Meds Allergies/Adverse Reactions: Allergies Allergy/AdvReac Type Severity Reaction Status Date / Time No Known Allergies Allergy Verified 05/21/18 16:44 - Medications Medications: Current Medications Docusate Sodium (Colace) 100 mg PO BID [facility] Gabapentin (Neurontin) 400 mg PO TID [facility] Last Admin: 05/23/18 13:55 Dose: 400 mg Hydrocortisone (Anusol-Hc) 0 gm [place] BID [facility] Hydroxyzine HCl (Atarax) 25 mg PO Q6 PRN PRN Reason: Anxiety Ibuprofen (Motrin Tab) 600 mg PO Q6H PRN PRN Reason: Pain, moderate (4-7) Last Admin: 05/23/18 13:57 Dose: 600 mg Methadone HCl (Methadone) 15 mg PO Q24H [facility]; Taper Stop: 05/26/18 09:59 Last Admin: 05/23/18 09:14 Dose: 15 mg Nicotine (Nicoderm Cq) 1 patch TD DAILY [facility] Last Admin: 05/23/18 09:14 Dose: 1 patch Trazodone HCl (Desyrel) 100 mg PO HS PRN PRN Reason: Insomnia Last Admin: 05/22/18 23:15 Dose: 100 mg Physical Exam - Constitutional Appears: Non-toxic, No Acute Distress - Head Exam Head Exam: NORMAL INSPECTION - Eye Exam Eye Exam: EOMI, Normal appearance. absent: Nystagmus, Scleral icterus - ENT Exam ENT Exam: Mucous Membranes Moist - Respiratory Exam Respiratory Exam: Clear to Auscultation Bilateral, NORMAL BREATHING PATTERN. absent: Rales, Rhonchi, Wheezes - Cardiovascular Exam Cardiovascular Exam: Tachycardia, REGULAR RHYTHM, +S1, +S2 - GI/Abdominal Exam GI & Abdominal Exam: Normal Bowel Sounds, Soft. absent: Diminished Bowel Sounds, Tenderness - Rectal Exam Additional comments: visible external hemorrhoid non-actively bleeding - Extremities Exam Extremities exam: Positive for: normal inspection. Negative for: calf tenderness, pedal edema - Neurological Exam Neurological exam: Alert, Oriented x3 - Psychiatric Exam Psychiatric exam: Normal Affect, Normal Mood - Skin Skin Exam: Dry, Intact, Normal Color Additional comments: multiple skin abnormalities; [address]; possibly from chronic scabies infection, nonactive Results - Vital Signs Recent Vital Signs: Last Vital Signs Temp 97.7 F 05/23/18 04:00 Pulse 125 H 05/23/18 10:54 Resp 18 05/23/18 10:54 BP 119/77 05/23/18 10:54 Pulse Ox 987 H 05/23/18 10:54 - Labs Result Diagrams: 05/21/18 17:30 05/21/18 17:30 Assessment & Plan - Assessment and Plan (Free Text) Assessment: 27 yo male admitted to detox for heroin abuse. Medicine consulted for rectal bleeding Plan: Rectal Bleeding 2/2 external hemorrhoid Colace 100mg po mg bid Annusol HC 2.5% cream- apply to the rectal area 2xdaily for 2 weeks Hgb low, MCV <80; likely iron deficiency anemia with rectal bleed No need for transfusion Hx of HIV not on active meds F/U in clinic outpatient Tachycardia Withdrawal from Heroin Abuse Psych mananging withdrawal symptoms PGY-1 Jacqueline Gandara Case d/w Dr. Holt Thank you for this very interesting consult. We will sign off for now. Outpatient followup for further management of chronic conditions including <Klever Holt - Last Filed: 05/26/18 21:35> Results - Vital Signs Recent Vital Signs: Last Vital Signs Temp 98.0 F 05/25/18 08:34 Pulse 103 H 05/25/18 08:34 Resp 20 05/25/18 08:34 BP 148/76 05/25/18 08:34 Pulse Ox 98 05/25/18 08:34 - Labs Result Diagrams: 05/23/18 14:25 05/23/18 14:25 Attending/Attestation - Attestation I have personally seen and examined this patient.: Yes I have fully participated in the care of the patient.: Yes I have reviewed all pertinent clinical information: Yes Notes (Text): 05/26/18 21:35 This is a late entry. Patient was seen and examined with Dr. Gandara and care was discussed with him. Klever Holt D.O.
[2018-05-23 14:33] LABS: BASO % 0.6 % (0.0-2.0); EOS % 0.9 % (0.0-4.0); HEMOGLOBIN 11.1 g/dL (12.0-18.0); LYMPH # 1.4 K/uL (1.0-4.3); LYMPH % 29.2 % (20.0-40.0); MEAN CELL VOLUME 77.6 fL (80.0-94.0); MEAN CORPUSCULAR HEMOGLOBIN 26.1 pg (27.0-31.0); MEAN CORPUSCULAR HGB CONC 33.7 g/dL (33.0-37.0); MEAN PLATELET VOLUME 8.4 fL (7.2-11.7); MONO # 0.4 K/uL (0.0-0.8); MONO % 7.8 % (0.0-10.0); NEUT # 2.9 K/uL (1.8-7.0); NEUT % 61.5 % (50.0-75.0); NRBC % 0.1 % (0.0-2.0); RBC 4.24 Mil/uL (4.40-5.90); RED CELL DISTRIBUTION WIDTH 16.6 % (11.5-14.5); WHITE BLOOD COUNT 4.7 K/uL (4.8-10.8)
[2018-05-23 15:09] LABS: BLOOD UREA NITROGEN 14 mg/dL (9-20); GFR NON-AFRICAN AMERICAN > 60
[2018-05-23 15:10] LABS: ALB/GLOB RATIO 0.8 (1.0-2.1); ALBUMIN 3.8 g/dL (3.5-5.0); ALT/SGPT 24 U/L (21-72); AST/SGOT 35 U/L (17-59)
[2018-05-24] MEDS: Hydrocortisone 2.5% Rectal Cream(30 gm) PR SCH ×2 (11:00→17:26)
[2018-05-25 06:25] VITALS: PULSE 103
[2018-05-25 09:35] VITALS: BP 148/76; RESP 20; TEMP 98; O2SAT 98
--- NOTE | 2018-05-25 09:47 | PCM.PYCHDC ---
Mental Status Examination - Mental Status Examination Orientation: Person Discharge Summary - Discharge Note Consultations:: List each consultation separately and include: 1. Reason for request. 2. Findings. 3. Follow-up Summary of Hospital Course include:: 1. Description of specific treatment plan utilized for patients during their course of treatmen. 2. Summarize the time- course for resolution of acute symptoms and/or regressed behaviors. 3. Describe issues identified and worked on during hospitalization. 4. Describe medication utilized. 5. Describe medical problems identified and treated. 6. Reassessment of suicide risk Summary of Hospital Course: Pt is seen, chart reviewed and case discussed. 27 y/o single unemployed male with no children. Pt is homeless. States that he does 5-10 bags of heroin (IV) per day for the past 11 years. The longest time he was sober was 4 months in 2017. At the time he was in a methadone program. He admits that when he left the program he went back to using because he did not have a lot of support. Pt has been to detox 2 times in the past, but has never been to rehab. He currently has chills, cramps, restlessness, yawning, irritability and states that his left leg has been bothering him. COWS is 10 and increasing. Pt has been HIV positive for three years, but has been non compliant will all of his medications for the past 3 years. After detox he plans to do an outpatient rehab. Pt mentioned that "this time will be different because I came her on my own and I am more motivated now". Denies suicidal or homicidal ideations but is depressed and anxious. Psych HX: Depression Fam Psych Hx: Denies Medical Hx: HIV(non compliant with medications. CD4 will be checked. He also uses a cane bc of an unidentified pain in his left flank. Medication: Not currently on any medications Social: Homeless, no children, unemployed Trauma: Denies ? The pt will go to [facility] but will consider [facility] as well. - Final Diagnosis (DSM 5) Condition upon Discharge: STABLE Disposition: HOME/ ROUTINE Follow-up Treatment Plan: Taper with methadone Gabapentin for augmentation and nerve pain As needed medications All risks, benefits and alternatives of the meds discussed, and the pt agreed and understood. Attend groups and activities Supportive therapy and psychoeducation [place] for abstinence CBT for relapse prevention Encourage MAT Refer to rehab or IOP, and self-help groups Teach healthy lifestyle methods, i.e. diet, exercise, meditation Smoking cessation with [place] Nicotine patch if needed ID consult if needed. 34 min Prescriptions/Medication Reconciliation: Docusate [Colace] 100 mg PO DAILY #30 cap Gabapentin [Neurontin] 400 mg PO TID #90 cap traZODone [Desyrel] 100 mg PO HS PRN #30 tab PRN Reason: Insomnia
[2018-05-25] MEDS: Hydrocortisone 2.5% Rectal Cream(30 gm) PR SCH (10:00)
== END 2018-05-25 10:30 | disposition home or self-care (01) | DRG 773 ==
LOC: C.ER 16:38 → C.7D 20:22
PROVIDERS: ADMIT Psychiatry & Neurology Psychiatry; ATTEND Psychiatry & Neurology Psychiatry
PROC: GZHZZZZ Group Psychotherapy (ICD-10-PCS; principal; 2018-05-21)
PROC: GZ56ZZZ Individual Psychotherapy, Supportive (ICD-10-PCS; 2018-05-21)
DX: F11.20 Opioid dependence, uncomplicated (principal); B20 Human immunodeficiency virus [HIV] disease; F32.9 Major depressive disorder, single episode, unspecified; F41.9 Anxiety disorder, unspecified; Z59.0 Homelessness; K62.5 Hemorrhage of anus and rectum; F17.210 Nicotine dependence, cigarettes, uncomplicated; Z91.14 Patient's other noncompliance with medication regimen